=== PATIENT | female | born 1950 | race Caucasian/White ===

== ENCOUNTER 2021-03-17 11:53 | Inpatient (IN) ==
[2021-03-17] MEDS ORDERED: Furosemide 40 MG/4 ML VIAL IVP ONE (12:14)
[2021-03-17 12:40] LABS: Basophils % 0.4 %; Hematocrit 25.2 % (35.3-44.9); Hemoglobin 8.2 g/dL (11.5-15.4); Immature Granulocytes % 0.7 % (0-4); Lymphocytes # 0.9 K/mcL (0.6-4.6); Lymphocytes % 7.9 %; Mean Corpuscular HGB Conc 32.5 g/dL (31.6-35.5); Mean Corpuscular Hemoglobin 31.9 pg (28.0-33.3); Mean Corpuscular Volume 98.1 fL (83.0-100.0); Mean Platelet Volume 10.3 fL (9.4-12.4); Monocytes # 0.6 K/mcL (0.0-1.3); Neutrophils # 9.7 K/mcL (1.6-8.9); Platelet Count 251 K/mcL (140-400); Red Blood Count 2.57 M/mcL (3.82-4.97); White Blood Count 11.3 K/mcL (4.3-11.1)
[2021-03-17 12:49] LABS: INR 1.1; Prothrombin Time 12.9 Seconds (9.4-12.1)
[2021-03-17 13:07] LABS: Albumin 3.7 g/dL (3.5-5.7); Albumin/Globulin Ratio 1.2 (1.1-2.2); Bilirubin,Direct 0.1 mg/dL (0.0-0.2); Bilirubin,Indirect 0.3 mg/dL (0.0-1.0); Bilirubin,Total 0.4 mg/dL (0.3-1.0); Calcium 8.8 mg/dL (8.6-10.3); Globulin 3.2 g/dL (2.4-3.5); Potassium 3.6 mEq/L (3.5-5.1); Total Protein 6.9 g/dL (6.4-8.9); Troponin I 0.09 ng/mL (< 0.04)
[2021-03-17] MEDS ORDERED: Melatonin 3 MG TABLET PO PRN (13:37)
[2021-03-17] MEDS ORDERED: Naloxone 0.4 MG/ML INJ IVP PRN (13:37)
[2021-03-17] MEDS ORDERED: Ondansetron ODT 4 MG TAB.RAPDIS SL PRN (13:37)
[2021-03-17 14:41] LABS: Folate 18.5 ng/mL (3.0-16.0)
[2021-03-17 14:42] LABS: Vitamin B12 1117 pg/mL (250-1100)
[2021-03-17] MEDS ORDERED: *HR* Heparin 10,000 UNIT/10 ML VIAL IV PRN (14:46)
[2021-03-17] MEDS ORDERED: 0.9 % Sodium Chloride 250 ML IVC PRN (14:46)
[2021-03-17 14:56] LABS: Thyroid Stimulating Hormone 1.317 mcIU/mL (0.340-5.600)
[2021-03-17] MEDS ORDERED: 0.9 % Sodium Chloride 1,000 ML PRIME SCH (15:00)
[2021-03-17] MEDS ORDERED: *HR* Dextrose 50 % in Water (Vial) 50 ML VIAL IVP PRN (15:02)
[2021-03-17] MEDS ORDERED: D5% in Water 1,000 ML IVC PRN (15:02)
[2021-03-17] MEDS ORDERED: Dextrose Gel 15 GM/37.5 ML TUBE PO PRN ×2 (15:02)
[2021-03-17] MEDS ORDERED: Perflutren Lipid Microsphere 1.3 ML in 0.9 % Sodium Chloride 8.7 ML IVP PRN (15:05)
[2021-03-17] MEDS ORDERED: Levalbuterol 1 PUFF INHALER IH PRN (15:07)
[2021-03-17] MEDS ORDERED: Nicotine 7 MG PATCH.TD24 TD PRN (15:14)
[2021-03-17 15:15] LABS: Thyroid Stimulating Hormone 1.37 mcIU/mL (0.340-5.600)
[2021-03-17 15:24] LABS: Hepatitis B Surface Antibody < 3.10 mIU/mL
[2021-03-17 15:35] LABS: Hepatitis B Surface Antigen Nonreactive (Nonreactive)
[2021-03-17] MEDS: Insulin LISPRO 300 UNITS/3 ML VIAL SUBQ SCH (17:30)
[2021-03-17] MEDS: Budesonide/Formoterol 80/4.5 1 PUFF INH IH SCH (20:04)
[2021-03-18 00:35] LABS: Basophils % 0.3 %; Eosinophils % 0.1 %; Hematocrit 25.9 % (35.3-44.9); Hemoglobin 8.4 g/dL (11.5-15.4); Immature Granulocytes % 0.4 % (0-4); Lymphocytes # 0.7 K/mcL (0.6-4.6); Lymphocytes % 5.8 %; Mean Corpuscular HGB Conc 32.4 g/dL (31.6-35.5); Mean Corpuscular Hemoglobin 32.3 pg (28.0-33.3); Mean Corpuscular Volume 99.6 fL (83.0-100.0); Mean Platelet Volume 10.4 fL (9.4-12.4); Monocytes # 0.8 K/mcL (0.0-1.3); Monocytes % 6.2 %; Neutrophils # 10.5 K/mcL (1.6-8.9); Platelet Count 243 K/mcL (140-400); Segmented Neutrophils % 87.2 %; White Blood Count 12.1 K/mcL (4.3-11.1)
[2021-03-18 00:49] LABS: Albumin 3.6 g/dL (3.5-5.7); Albumin/Globulin Ratio 1.2 (1.1-2.2); Bilirubin,Total 0.5 mg/dL (0.3-1.0); Calcium 8.5 mg/dL (8.6-10.3); Globulin 3.1 g/dL (2.4-3.5); Magnesium 1.9 mg/dL (1.6-2.6); Phosphorous 2.7 mg/dL (2.7-4.5); Potassium 3.8 mEq/L (3.5-5.1); Total Protein 6.7 g/dL (6.4-8.9)
[2021-03-18] MEDS: Budesonide/Formoterol 80/4.5 1 PUFF INH IH SCH ×2 (07:37→20:07)
[2021-03-18] MEDS: Levalbuterol 1 PUFF INHALER IH SCH ×5 (07:37→23:22)
[2021-03-18] MEDS ORDERED: Albumin 25% 25gram/100mL 25 GM/100 ML IV.SOLN IVPB PRN (08:39)
[2021-03-18] MEDS ORDERED: *HR* Heparin 10,000 UNIT/10 ML VIAL IV PRN (08:39)
[2021-03-18] MEDS ORDERED: 0.9 % Sodium Chloride 250 ML IVC PRN (08:39)
[2021-03-18] MEDS: Insulin LISPRO 300 UNITS/3 ML VIAL SUBQ SCH ×3 (08:49→16:33)
[2021-03-18] MEDS: Renal Vitamin 1 CAP CAPSULE PO SCH (08:50)
[2021-03-18] MEDS: Aspirin Enteric Coated 81 MG Tablet PO SCH (13:53)
[2021-03-18] MEDS: carvediloL 6.25 MG TABLET PO SCH (16:58)
[2021-03-19] MEDS: Levalbuterol 1 PUFF INHALER IH SCH ×6 (04:21→23:26)
[2021-03-19 05:42] LABS: Basophils # 0.1 K/mcL (0.0-0.2); Basophils % 0.6 %; Eosinophils # 0.1 K/mcL (0.0-0.6); Eosinophils % 0.6 %; Hematocrit 25.6 % (35.3-44.9); Hemoglobin 7.9 g/dL (11.5-15.4); Immature Granulocytes % 0.7 % (0-4); Lymphocytes # 1.4 K/mcL (0.6-4.6); Mean Corpuscular HGB Conc 30.9 g/dL (31.6-35.5); Mean Corpuscular Volume 103.6 fL (83.0-100.0); Mean Platelet Volume 10.3 fL (9.4-12.4); Monocytes % 7.9 %; Neutrophils # 10.3 K/mcL (1.6-8.9); Platelet Count 260 K/mcL (140-400); Red Blood Count 2.47 M/mcL (3.82-4.97); Red Cell Distribution Width 13.1 % (11.5-14.5); Segmented Neutrophils % 79.2 %
[2021-03-19 06:01] LABS: Calcium 8.7 mg/dL (8.6-10.3); Phosphorous 3.1 mg/dL (2.7-4.5); Potassium 3.9 mEq/L (3.5-5.1)
[2021-03-19] MEDS ORDERED: 0.9 % Sodium Chloride 250 ML IVC PRN (07:41)
[2021-03-19] MEDS ORDERED: *HR* Heparin 10,000 UNIT/10 ML VIAL IV PRN (07:41)
[2021-03-19] MEDS ORDERED: 0.9 % Sodium Chloride 1,000 ML PRIME SCH (07:45)
[2021-03-19] MEDS: Insulin LISPRO 300 UNITS/3 ML VIAL SUBQ SCH ×3 (07:49→17:20)
[2021-03-19] MEDS: Budesonide/Formoterol 80/4.5 1 PUFF INH IH SCH ×2 (07:59→20:05)
[2021-03-19] MEDS: Cyanocobalamin (B-12) 1,000 MCG TABLET PO SCH (08:51)
[2021-03-19] MEDS: Aspirin Enteric Coated 81 MG Tablet PO SCH (08:51)
[2021-03-19] MEDS: Renal Vitamin 1 CAP CAPSULE PO SCH (08:51)
[2021-03-19] MEDS ORDERED: Ferumoxytol 510 MG in 0.9 % Sodium Chloride 100 ML IVPB ONE (11:49)
[2021-03-19] MEDS: carvediloL 6.25 MG TABLET PO SCH ×2 (13:24→17:20)
[2021-03-19] MEDS: Furosemide 20 MG TABLET PO SCH (13:39)
[2021-03-19] MEDS: amLODIPine 5 MG TABLET PO SCH (13:39)
[2021-03-20 02:34] LABS: Basophils # 0.1 K/mcL (0.0-0.2); Basophils % 0.6 %; Eosinophils # 0.1 K/mcL (0.0-0.6); Hematocrit 25.3 % (35.3-44.9); Immature Granulocytes % 0.5 % (0-4); Lymphocytes # 2.4 K/mcL (0.6-4.6); Lymphocytes % 19.7 %; Mean Corpuscular HGB Conc 31.6 g/dL (31.6-35.5); Mean Corpuscular Hemoglobin 31.5 pg (28.0-33.3); Mean Corpuscular Volume 99.6 fL (83.0-100.0); Mean Platelet Volume 10.2 fL (9.4-12.4); Monocytes # 1.1 K/mcL (0.0-1.3); Monocytes % 9.1 %; Neutrophils # 8.5 K/mcL (1.6-8.9); Platelet Count 278 K/mcL (140-400); Red Blood Count 2.54 M/mcL (3.82-4.97); Red Cell Distribution Width 12.9 % (11.5-14.5); Segmented Neutrophils % 69.1 %; White Blood Count 12.4 K/mcL (4.3-11.1)
[2021-03-20 02:48] LABS: Calcium 8.2 mg/dL (8.6-10.3); Magnesium 1.8 mg/dL (1.6-2.6); Phosphorous 2.4 mg/dL (2.7-4.5); Potassium 3.5 mEq/L (3.5-5.1)
[2021-03-20] MEDS: Levalbuterol 1 PUFF INHALER IH SCH ×5 (04:10→19:39)
[2021-03-20] MEDS: Insulin LISPRO 300 UNITS/3 ML VIAL SUBQ SCH ×3 (07:13→16:18)
[2021-03-20] MEDS ORDERED: 0.9 % Sodium Chloride 250 ML IVC PRN (07:31)
[2021-03-20] MEDS ORDERED: *HR* Heparin 10,000 UNIT/10 ML VIAL IV PRN (07:31)
[2021-03-20] MEDS ORDERED: 0.9 % Sodium Chloride 1,000 ML PRIME SCH (07:45)
[2021-03-20] MEDS: Cyanocobalamin (B-12) 1,000 MCG TABLET PO SCH (07:45)
[2021-03-20] MEDS: Aspirin Enteric Coated 81 MG Tablet PO SCH (07:45)
[2021-03-20] MEDS: Renal Vitamin 1 CAP CAPSULE PO SCH (07:45)
[2021-03-20] MEDS: Budesonide/Formoterol 80/4.5 1 PUFF INH IH SCH ×2 (07:52→19:39)
[2021-03-20] MEDS: amLODIPine 5 MG TABLET PO SCH (12:13)
[2021-03-20] MEDS: carvediloL 6.25 MG TABLET PO SCH ×2 (12:14→17:15)
[2021-03-20] MEDS: Nystatin POWDER 30 GM BOTTLE TP SCH ×3 (12:39→20:48)
[2021-03-20] MEDS: Furosemide 20 MG TABLET PO SCH (14:48)
[2021-03-20] MEDS: *HR* HYDROcodone/Acet 5/325 mg TABLET PO PRN (14:48)
[2021-03-20] MEDS ORDERED: MAGNESIUM SULFATE TP PRN (15:12)
[2021-03-20 23:13] LABS: Influenza A PCR Negative (Negative); Influenza B PCR Negative (Negative); Resp. Syncytial Virus PCR Negative (Negative)
[2021-03-20 23:26] LABS: SARS-CoV-2 by PCR (In House) Negative (Negative)
[2021-03-21] MEDS: Levalbuterol 1 PUFF INHALER IH SCH ×6 (00:20→20:42)
[2021-03-21 02:46] LABS: Hematocrit 27.7 % (35.3-44.9); Hemoglobin 8.8 g/dL (11.5-15.4); Mean Corpuscular HGB Conc 31.8 g/dL (31.6-35.5); Mean Corpuscular Hemoglobin 32.1 pg (28.0-33.3); Mean Corpuscular Volume 101.1 fL (83.0-100.0); Mean Platelet Volume 10.4 fL (9.4-12.4); Platelet Count 282 K/mcL (140-400); Red Blood Count 2.74 M/mcL (3.82-4.97); Red Cell Distribution Width 12.8 % (11.5-14.5)
[2021-03-21 03:08] LABS: Calcium 8.6 mg/dL (8.6-10.3); Magnesium 1.7 mg/dL (1.6-2.6); Phosphorous 3.3 mg/dL (2.7-4.5); Potassium 3.9 mEq/L (3.5-5.1)
[2021-03-21] MEDS: Budesonide/Formoterol 80/4.5 1 PUFF INH IH SCH ×2 (07:25→20:42)
[2021-03-21] MEDS: Insulin LISPRO 300 UNITS/3 ML VIAL SUBQ SCH ×3 (07:31→17:38)
[2021-03-21] MEDS: Renal Vitamin 1 CAP CAPSULE PO SCH (11:48)
[2021-03-21] MEDS: Aspirin Enteric Coated 81 MG Tablet PO SCH (11:48)
[2021-03-21] MEDS: Furosemide 20 MG TABLET PO SCH (11:50)
[2021-03-21] MEDS: carvediloL 6.25 MG TABLET PO SCH ×2 (11:50→20:19)
[2021-03-21] MEDS: Cyanocobalamin (B-12) 1,000 MCG TABLET PO SCH (11:51)
[2021-03-21] MEDS: amLODIPine 5 MG TABLET PO SCH ×2 (11:51→12:07)
[2021-03-21] MEDS: Nystatin POWDER 30 GM BOTTLE TP SCH ×3 (11:52→20:29)
[2021-03-21] MEDS ORDERED: Dexamethasone 4 MG/ML VIAL ONE (16:50)
[2021-03-21] MEDS ORDERED: *HR* Rocuronium Bromide 50 MG/5 ML VIAL ONE (16:50)
[2021-03-21] MEDS ORDERED: *HR* Propofol 200 MG/20 ML VIAL IVP ONE (16:50)
[2021-03-21] MEDS ORDERED: Lidocaine HCL 4 ML Topical Solution (Laryng-O-Jet Kit Sterile Pak) TP ONE (16:50)
[2021-03-21] MEDS ORDERED: *HR* FentaNYL (PF) 100 MCG/2 ML VIAL ONE (16:50)
[2021-03-21] MEDS ORDERED: Ondansetron 4 MG/2 ML VIAL ONE (16:50)
[2021-03-21] MEDS ORDERED: *HR* Succinylcholine 200 MG/10 ML VIAL IVP ONE (16:50)
[2021-03-21] MEDS ORDERED: Lidocaine -MPF 2% 2 ML VIAL ONE (16:50)
[2021-03-21] MEDS ORDERED: Heparin 1,000 UNITS/500 mL 500 ML ONE (16:50)
[2021-03-21] MEDS ORDERED: *HR* FentaNYL (PF) 100 MCG/2 ML VIAL IVP PRN (17:27)
[2021-03-21] MEDS ORDERED: Ondansetron 4 MG/2 ML VIAL IVP PRN (17:27)
[2021-03-21] MEDS ORDERED: ceFAZolin 1,000 MG in Water for inj. (sterile) 10 ML IVP ONE (17:30)
[2021-03-21] MEDS ORDERED: *HR* PHENYLEPHRINE 1,000 MCG/10 ML SYRINGE IVP ONE (18:00)
[2021-03-21] MEDS ORDERED: Sugammadex Sodium 200 MG/2 ML VIAL IV ONE (18:16)
[2021-03-21] MEDS ORDERED: Acetaminophen 325 MG TABLET PO PRN (18:30)
[2021-03-22] MEDS ORDERED: 0.9 % Sodium Chloride 250 ML IVC PRN (00:01)
[2021-03-22] MEDS ORDERED: *HR* Heparin 10,000 UNIT/10 ML VIAL IV PRN (00:01)
[2021-03-22] MEDS: Levalbuterol 1 PUFF INHALER IH SCH ×4 (00:37→10:34)
[2021-03-22 06:34] LABS: Hematocrit 27.4 % (35.3-44.9); Hemoglobin 8.8 g/dL (11.5-15.4); Mean Corpuscular HGB Conc 32.1 g/dL (31.6-35.5); Mean Corpuscular Hemoglobin 31.4 pg (28.0-33.3); Mean Corpuscular Volume 97.9 fL (83.0-100.0); Mean Platelet Volume 10.4 fL (9.4-12.4); Platelet Count 294 K/mcL (140-400); Red Cell Distribution Width 12.6 % (11.5-14.5); White Blood Count 9.5 K/mcL (4.3-11.1)
[2021-03-22] MEDS: Budesonide/Formoterol 80/4.5 1 PUFF INH IH SCH (07:21)
[2021-03-22 08:00] LABS: Calcium 9.1 mg/dL (8.6-10.3); Potassium 4.8 mEq/L (3.5-5.1)
[2021-03-22] MEDS: *HR* HYDROcodone/Acet 5/325 mg TABLET PO PRN (09:14)
[2021-03-22] MEDS: Insulin LISPRO 300 UNITS/3 ML VIAL SUBQ SCH ×2 (09:17→11:44)
[2021-03-22] MEDS: carvediloL 6.25 MG TABLET PO SCH (11:40)
[2021-03-22] MEDS: Aspirin Enteric Coated 81 MG Tablet PO SCH (11:41)
[2021-03-22] MEDS: Furosemide 20 MG TABLET PO SCH (11:42)
[2021-03-22] MEDS: Cyanocobalamin (B-12) 1,000 MCG TABLET PO SCH (11:43)
[2021-03-22] MEDS: Nystatin POWDER 30 GM BOTTLE TP SCH (11:43)
[2021-03-22] MEDS: amLODIPine 5 MG TABLET PO SCH (11:43)
[2021-03-22] MEDS: Renal Vitamin 1 CAP CAPSULE PO SCH (11:43)
[2021-03-22 12:08] VITALS: BP 104/60
== END 2021-03-22 13:25 | disposition home or self-care (01) | DRG 981 ==
LOC: 2ANU 11:53 → EMEROOARM 11:53 → 2ANU 14:35 → SUATTDRO 03-18 14:45
PROVIDERS: ADMIT Internal Medicine; ATTEND Internal Medicine